=== PATIENT | male | born 1930 | race African-American/Black ===

== ENCOUNTER 2017-07-05 12:28 | Emergency (ER) | payer OTHER, MEDICAID ==
[~2017-07-05] VITALS: Ht 180.3 cm; Wt 81.0 kg
[2017-07-05] MEDS ORDERED: CARV6.2548 PO (12:34)
[2017-07-05] MEDS ORDERED: LISI-186 PO (12:34)
[2017-07-05] MEDS ORDERED: ASPI-1159 PO (12:34)
[2017-07-05] MEDS ORDERED: SODIUM CHLORIDE 0.9% 1,000 ML IV ONE (13:03)
[2017-07-05 14:45] LABS: BASOPHILS % 0.8 % (0.0-2.0); HEMATOCRIT. 44.4 % (42.0-52.0); HEMOGLOBIN. 14.2 g/dL (14.0-18.0); MEAN CORPUSCULAR HEMOGLOBIN 27.7 pg (28.0-32.0); MEAN CORPUSCULAR VOLUME 86.9 fL (80.0-94.0); MEAN PLATELET VOLUME 8.5 fl (7.4-10.4); MONOCYTES % 7.1 % (2.0-8.0); NEUTROPHILS % 65.1 % (40.0-76.0); PLATELET 404 x1000/uL (130-400); RED BLOOD CELL COUNT 5.11 mill/uL (4.7-6.1); RED CELL DISTRIBUTION WIDTH 15.9 % (11.6-14.6)
[2017-07-05 14:57] LABS: INR 1.1; PROTHROMBIN TIME 11.4 sec (9.4-11.6)
[2017-07-05 15:00] LABS: CARBON DIOXIDE 30 mEq/L (21-32); CHLORIDE 104 mEq/L (98-107)
[2017-07-05 15:01] LABS: TROPONIN I <0.01 ng/mL ng/mL (0.00-0.04)
[2017-07-05 23:02] VITALS: BP 153/88
== END 2017-07-05 23:04 | disposition home or self-care (01) ==
LOC: EDBD 14:44 → ER 14:44
DX: R05 Cough (principal); F03.90 Unspecified dementia, unspecified severity, without behavioral disturbance, psychotic disturbance, mood disturbance, and anxiety; I11.0 Hypertensive heart disease with heart failure; I50.9 Heart failure, unspecified; I69.351 Hemiplegia and hemiparesis following cerebral infarction affecting right dominant side; Z85.9 Personal history of malignant neoplasm, unspecified; Z79.82 Long term (current) use of aspirin
CPT/HCPCS: 36415; 71045; 80053; 83605; 83880; 84484; 85025; 85610; 87040; 87804; 93005; 99285; J7030